=== PATIENT | female | born 1970 | race Caucasian/White ===

== ENCOUNTER 2024-01-05 01:41 | Emergency (ER) | payer OTHER, SELFPAY ==
[2024-01-05 01:45] VITALS: BP 132/79; PULSE 61; TEMP 36.6; O2SAT 100; BMI 19.4
--- NOTE | 2024-01-05 02:02 | CT_ITS ---
The [address] [address] Patient Name: GIAN LINO MRN: [id number] date: 1970 Sex: F Assigned Patient Location: ER Current Patient Location: ED.MAIN Accession/Order Number: [id number] Exam Date: 01/05/2024 22:23 Report Date: 01/05/2024 03:40 At the request of: CHAYITO MASON Procedure: CT abdomen pelvis w con EXAM: CT abdomen pelvis w con HISTORY: Left lower quadrant pain, rule out diverticulitis COMPARISON: None. TECHNIQUE: IV contrast enhanced CT imaging the abdomen and pelvis was performed using 100 mL of Omnipaque 300 intravenous contrast. Sagittal and coronal reconstructions are provided. FINDINGS: CT ABDOMEN: The lung bases are clear. The imaged heart is unremarkable. The liver, gallbladder, pancreas, spleen, adrenal glands, stomach and small bowel are unremarkable. There is mild left hydroureteronephrosis extending to a 4 mm distal left ureteral stone just proximal to the UVJ on image 111 of series 3. There may be an additional 2 mm punctate stone in the lower pole of the left kidney on image 54. There is a 0.4 cm cortical cyst in the upper pole of the right kidney. The kidneys are otherwise unremarkable. There are mild aortic and iliac calcifications without aneurysm or dissection. The IVC appears normal. CT PELVIS: A normal appendix is seen on image 86. The pelvic small bowel bowel loops are unremarkable. There is mild urinary bladder wall thickening. Mild colonic diverticulosis is noted. There appears be a normal uterus on image 100. No free fluid, loculated fluid, free air or soft tissue gas is seen in the abdomen or pelvis. Right total hip arthroplasty is in appropriate position and alignment and results in significant metallic streak artifact degrading images through the lower pelvis. There is severe osteoarthritis in the left hip with complete superior acetabular joint space loss, prominent subchondral cyst formation and femoral head osteophytosis. A mild broad lumbar levoscoliosis is present. CT/CT abdomen pelvis w con IMPRESSION: 1. Mild left hydroureteronephrosis due to a 4 mm distal left ureteral stone just proximal to the UVJ. One additional 2 mm stone is suggested in the lower pole of the left kidney. No other potential upper or lower urinary tract calculi are seen on either side. 2. Mild wall thickening in the largely decompressed bladder may reflect incomplete bladder distention or mild cystitis. No other potential acute findings are seen in the abdomen or pelvis. 3. Mild colonic diverticulosis. Electronically authenticated by: SYLVIA ROJAS Date: 01/05/2024 03:40
--- NOTE | 2024-01-05 02:02 | ED.ABDPAIN1 ---
HPI - Abdominal Pain General Chief Complaint: Abdominal Pain Stated Complaint: ABD PAIN Time Seen by Provider: 01/05/24 01:58 Source: patient Mode of arrival: walk-in Limitations: no limitations History of Present Illness HPI narrative: 53-year-old female presents for abdominal pain. She is complaining of pain in the left lower part of her abdomen and it started about 2 hours ago while she was sleeping, it woke her up. She is never had pain like this before, she has never had diverticulitis. No trauma or fever or dysuria. No flank pain or right-sided pain. The pain is moderate and continuous. Related Data Home Medications ?Medication ?Instructions ?Recorded ?Confirmed aspirin 81 mg capsule 81 mg PO DAILY 01/05/24 01/05/24 atorvastatin 20 mg/5 mL (4 mg/mL) 20 mg PO DAILY 01/05/24 01/05/24 oral suspension (AtorvaliQ) fluoxetine 40 mg capsule 40 mg PO DAILY 01/05/24 01/05/24 metoprolol tartrate 50 mg tablet 50 mg PO DAILY 01/05/24 01/05/24 (Lopressor) omeprazole 20 mg capsule,delayed 20 mg PO DAILY 01/05/24 01/05/24 release Previous Rx's ?Medication ?Instructions ?Recorded hydrocodone 5 mg-acetaminophen 325 1 tab PO Q6H PRN pain 5 days #20 01/05/24 mg tablet tabs ondansetron 4 mg disintegrating 4 mg PO Q6H PRN nausea and 01/05/24 tablet vomiting #20 tabs tamsulosin 0.4 mg capsule (Flomax) 0.4 mg PO DAILY #7 caps 01/05/24 Allergies Allergy/AdvReac Type Severity Reaction Status Date / Time No Known Drug Allergies Allergy Verified 01/05/24 01:48 Review of Systems ROS Narrative A ten point review of systems is negative except as noted above. Exam Narrative Exam Narrative: Nurses note and vital signs reviewed and patient is not hypoxic. General: The patient appears well and in no apparent distress. Patient is resting comfortably on cart. Skin: Warm, dry, no pallor noted. There is no rash noted. Head: Normocephalic, atraumatic Eye: Normal conjunctiva, no drainage Ears, Nose, Mouth, and Throat: oral mucosa is moist. Nares patent. Cardiovascular: Regular Rate and Rhythm Respiratory: Patient is in no distress, no accessory muscle use, lungs are clear to auscultation, no wheezing, rales or rhonchi Back: non-tender GI: Soft and nondistended. Tenderness present in the left lower quadrant, no mass Musculoskeletal: The patient has no evidence of calf tenderness, no pitting edema, symmetrical pulses noted bilaterally Neurological: A&O, normal speech Psychiatric: Cooperative Constitutional Vital Signs, click to edit/add: Last Vital Signs Temp 97.9 F 01/05/24 01:45 Pulse 61 01/05/24 01:45 Resp 18 01/05/24 01:45 BP 132/79 01/05/24 01:45 Pulse Ox 100 01/05/24 01:45 O2 Del Method Room Air 01/05/24 01:45 Course Vital Signs Vital signs: Vital Signs Temperature 97.9 F 01/05/24 01:45 Pulse Rate 61 01/05/24 01:45 Respiratory Rate 18 01/05/24 01:45 Blood Pressure 132/79 01/05/24 01:45 Pulse Oximetry 100 01/05/24 01:45 Oxygen Delivery Method Room Air 01/05/24 01:45 Temperature 97.9 F 01/05/24 01:45 Pulse Rate 61 01/05/24 01:45 Respiratory Rate 18 01/05/24 01:45 Blood Pressure 132/79 01/05/24 01:45 Pulse Oximetry 100 01/05/24 01:45 Oxygen Delivery Method Room Air 01/05/24 01:45 MDM - Abdominal Pain MDM Narrative Medical decision making narrative: 4 mm kidney stone is identified. She is feeling improved and is able to be discharged home with prescriptions for hydrocodone, Zofran, and Flomax. She will be referred to urology and was discharged home with urine strainer and specimen cup as well. Treatment diagnosis and follow-up were discussed with the patient. Differential Diagnosis Differential diagnosis: Likely abdominal pain, calculus of kidney, constipation, diverticulitis and gastroenteritis Lab Data Attestation: I reviewed the patient's lab results. Labs: Lab Results 01/05/24 01/05/24 Range/Units 01:50 02:40 WBC 7.9 (4.0-11.0) 10^3/uL RBC 4.44 (4.20-5.40) 10^6/uL Hgb 12.8 (12.0-16.0) g/dL Hct 40.2 (36.0-48.0) % MCV 90.5 (81.0-99.0) fL MCH 28.8 (26.7-34.0) pg MCHC 31.8 (29.9-35.2) g/dL RDW 14.9 (11.0-15.0) % Plt Count 307 (150-450) 10^3/uL MPV 10.2 (9.5-13.5) fL Neut % (Auto) 58.7 (43.0-75.0) % Lymph % (Auto) 28.0 (20.5-60.0) % [place] % (Auto) 8.7 (1.7-12.0) % Eos % (Auto) 3.4 (0.9-7.0) % Baso % (Auto) 0.9 (0.2-2.0) % Neut # (Auto) 4.6 (1.4-6.5) 10^3/uL Lymph # (Auto) 2.2 (1.2-3.8) 10^3/uL [place] # (Auto) 0.7 (0.3-0.8) 10^3/uL Eos # (Auto) 0.3 (0.0-0.7) 10^3/uL Baso # (Auto) 0.1 (0.0-0.1) 10^3/uL Abs Immat Gran (auto) 0.02 (0.00-0.03) 10^3/uL Imm/Tot Granulo (auto) 0.3 (0.0-0.5) % Sodium 139 (136-145) mmol/L Potassium 3.5 (3.5-5.1) mmol/L Chloride 105 (98-107) mmol/L Carbon Dioxide 28.0 (21.0-32.0) mmol/L Anion Gap 9.5 BUN 15.0 (7.0-18.0) mg/dL Creatinine 0.87 (0.55-1.02) mg/dL Est GFR ( Amer) >60 (>=60) Est GFR (Non-Af Amer) >60 (>=60) BUN/Creatinine Ratio 17.2 Glucose 125 H (74-106) mg/dL Calcium 8.7 (8.5-10.1) mg/dL Urine Color Yellow (YELLOW) Urine Clarity Clear (CLEAR) Urine pH 6.5 (5.0-9.0) Ur Specific [place] 1.015 (1.005-1.025) Urine Protein Negative (NEG/TRACE) mg/dL Urine Glucose (UA) Negative (NEGATIVE) mg/dL Urine Ketones Negative (NEGATIVE) mg/dL Urine Occult Blood Large A (NEGATIVE) Urine Nitrite Negative (NEGATIVE) Urine Bilirubin Negative (NEGATIVE) Urine Urobilinogen 0.2 (0.2-1.0) EU/dL Ur Leukocyte Esterase Negative (NEGATIVE) Urine RBC >100 A (0-2) #/HPF Urine WBC None seen (NONE SEEN) #/HPF Ur Squamous Epith Cells None seen (NONE/RARE) #/LPF Urine Crystals None seen (None Seen) #/HPF Urine Bacteria None seen (NONE SEEN) #/HPF Urine Casts None seen (NONE SEEN) #/LPF Urine Mucus None seen (NONE SEEN) Ur Culture Indicated? No Imaging Data CT scan - abdomen: Radiologist's impression: ITS Impressions Abdomen/Pelvis CT 01/05/24 02:02 IMPRESSION: 1. Mild left hydroureteronephrosis due to a 4 mm distal left ureteral stone just proximal to the UVJ. One additional 2 mm stone is suggested in the lower pole of the left kidney. No other potential upper or lower urinary tract calculi are seen on either side. 2. Mild wall thickening in the largely decompressed bladder may reflect incomplete bladder distention or mild cystitis. No other potential acute findings are seen in the abdomen or pelvis. 3. Mild colonic diverticulosis. Electronically authenticated by: SYLVIA ROJAS Date: 01/05/2024 03:40 Discharge Plan Discharge Stand Alone Forms: Portal Instructions Chief Complaint: Abdominal Pain Clinical Impression: Kidney stone Patient Disposition: Home, Self-Care Time of Disposition Decision: 03:46 Condition: Good Mode of Transportation: Private Vehicle Prescriptions / Home Meds: New hydrocodone-acetaminophen 5-325 mg tablet 1 tab PO Q6H PRN (Reason: pain) 5 Days Qty: 20 0RF tamsulosin [Flomax] 0.4 mg capsule 0.4 mg PO DAILY Qty: 7 0RF ondansetron 4 mg tablet,disintegrating 4 mg PO Q6H PRN (Reason: nausea and vomiting) Qty: 20 0RF No Action AtorvaliQ 20 mg/5 mL (4 mg/mL) suspension 20 mg PO DAILY Rx Instructions: administer on an empty stomach, at least 1 hour before or 2 hours after food/meal(s) metoprolol tartrate [Lopressor] 50 mg tablet 50 mg PO DAILY fluoxetine 40 mg capsule 40 mg PO DAILY aspirin 81 mg capsule 81 mg PO DAILY omeprazole 20 mg capsule,delayed release(DR/EC) 20 mg PO DAILY Print Language: Kiswahili Instructions: Kidney Stones (ED), How to Strain Your Urine (ED) Referrals: Physician,Non-Staff, [Physician] - 1 week Gary Higginbotham MD [Physician] - 1 week
[2024-01-05 02:06] LABS: Basophils Absolute Auto 0.1 10^3/uL (0.0-0.1); Basophils Percent Auto 0.9 % (0.2-2.0); Eosinophils Absolute Auto 0.3 10^3/uL (0.0-0.7); Eosinophils Percent Auto 3.4 % (0.9-7.0); Hematocrit 40.2 % (36.0-48.0); Hemoglobin 12.8 g/dL (12.0-16.0); Immature Granulocytes Abs Auto 0.02 10^3/uL (0.00-0.03); Immature Granulocytes Pct Auto 0.3 % (0.0-0.5); Lymphocytes Absolute Auto 2.2 10^3/uL (1.2-3.8); Mean Corpuscular HGB Conc 31.8 g/dL (29.9-35.2); Mean Corpuscular Hemoglobin 28.8 pg (26.7-34.0); Mean Corpuscular Volume 90.5 fL (81.0-99.0); Mean Platelet Volume 10.2 fL (9.5-13.5); Monocytes Absolute Auto 0.7 10^3/uL (0.3-0.8); Monocytes Percent Auto 8.7 % (1.7-12.0); Neutrophils Absolute Auto 4.6 10^3/uL (1.4-6.5); Neutrophils Percent Auto 58.7 % (43.0-75.0); Platelet Count 307 10^3/uL (150-450); Red Blood Count 4.44 10^6/uL (4.20-5.40); Red Cell Distribution Width 14.9 % (11.0-15.0); White Blood Count 7.9 10^3/uL (4.0-11.0)
[2024-01-05 02:19] LABS: Anion Gap 9.5; BUN Creatinine Ratio 17.2; Calcium 8.7 mg/dL (8.5-10.1); Chloride 105 mmol/L (98-107); Estimated GFR (African America >60 (>=60); Estimated GFR (Non-African Ame >60 (>=60); Glucose 125 mg/dL (74-106); Potassium 3.5 mmol/L (3.5-5.1); Sodium 139 mmol/L (136-145)
[2024-01-05 02:47] LABS: Bilirubin Urine NEGATIVE (NEGATIVE); Blood Urine LARGE (NEGATIVE); Clarity Urine CLEAR (CLEAR); Color Urine YELLOW (YELLOW); Glucose Urine UA NEGATIVE (NEGATIVE); Ketones Urine NEGATIVE (NEGATIVE); Leukocyte Esterase Urine NEGATIVE (NEGATIVE); Nitrite Urine NEGATIVE (NEGATIVE); Protein Urine NEGATIVE (NEG/TRACE); Specific Gravity Urine 1.015 (1.005-1.025); Urobilinogen Urine 0.2 EU/dL (0.2-1.0); pH Urine 6.5 (5.0-9.0)
[2024-01-05] MEDS: ONDANSETRON PF 4 MG/2 ML VIAL IV (02:52)
[2024-01-05] MEDS: MORPHINE SULFATE 4 MG/ML VIAL IV (02:52)
[2024-01-05 02:53] LABS: WBC Urine NONE SEEN #/HPF (NONE SEEN)
[2024-01-05 02:54] LABS: Bacteria Urine NONE SEEN #/HPF (NONE SEEN); Cast Seen? NONE SEEN #/LPF (NONE SEEN); Crystals Seen? None Seen #/HPF (None Seen); Mucus Urine NONE SEEN (NONE SEEN); RBC Urine >100 #/HPF (0-2); Squamous Epithelial Cell Urine NONE SEEN #/LPF (NONE/RARE); Urine Culture Indicated NO
[2024-01-05 03:58] VITALS: BP 129/82; PULSE 63; O2SAT 99
== END 2024-01-05 03:58 | disposition home or self-care (01) ==
PROVIDERS: Emergency Provider Emergency Medicine; PCP Nurse Practitioner
DX: N20.0 Calculus of kidney (principal)
CPT/HCPCS: 36415; 74177; 80048; 81001; 85025; 96374; 96375; 99285; Q9967